=== PATIENT | female | born 1985 | race African-American/Black ===

== ENCOUNTER → 2018-04-26 | Outpatient (CLI) | payer MEDICARE | LOC: MAMMO 13:12 | PROVIDERS: ATTEND Internal Medicine | DX: Z12.31 Encounter for screening mammogram for malignant neoplasm of breast (principal) | CPT/HCPCS: 77067 ==

== ENCOUNTER → 2018-05-21 | Outpatient (CLI) | payer MEDICARE ==
--- NOTE | 2018-05-21 16:10 | Diagnostic Imaging Report ---
EXAMINATION: CHEST 2 VIEWS INDICATION: Shortness of breath. COMPARISON: Asthma, shortness of breath, benzene exposure. FINDINGS: TUBES and LINES: None. LUNGS: Lungs are well inflated. Lungs are clear. There is no evidence of pneumonia or pulmonary edema. PLEURA: No pleural effusion or pneumothorax. HEART AND MEDIASTINUM: The cardiomediastinal silhouette is unremarkable. BONES AND SOFT TISSUES: No acute osseous lesion. Soft tissues are unremarkable. UPPER ABDOMEN: No free air under the diaphragm. IMPRESSION: No acute radiographic abnormality. Signed by: Dr. Ruthie Suresh MD on 05/21/2018 4:07 PM
== END ==
LOC: RAD 15:26
PROVIDERS: ATTEND Internal Medicine
DX: R06.02 Shortness of breath (principal); Z77.021 Contact with and (suspected) exposure to benzene
CPT/HCPCS: 71046

== ENCOUNTER → 2018-08-28 | Outpatient (CLI) | payer MEDICARE, OTHER ==
--- NOTE | 2018-08-28 13:44 | Diagnostic Imaging Report ---
PROCEDURE:SACRUM X-RAY, lumbar spine x-ray INDICATION:Low back pain, denies trauma COMPARISON:None. FINDINGS: Sacrum: No acute displaced fracture or dislocation. Lateral radiograph shows no evidence of cortical disruption or step-off. The sacroiliac joints are intact. The inferior sacrum and coccyx are obscured by rectal gas and stool on the frontal radiograph. The sacral foramina appear intact superiorly. Lumbar spine: there are 5 nonrib-bearing lumbar-type vertebral bodies. No acute, displaced fracture or subluxation. No pars interarticularis defects are identified on the oblique radiographs. Intervertebral disc spaces and facet joints are well maintained. No osseous destructive lesions. CONCLUSION: No acute osseous abnormalities of the sacrum or lumbar spine. Dictated by: Alex Mcnamara M.D. on 08/28/2018 at 13:48 Electronically approved by: Alex Mcnamara M.D. on 08/28/2018 at 13:48
--- NOTE | 2018-08-28 13:45 | Diagnostic Imaging Report ---
PROCEDURE: L-SPINE COMPLETE COMPARISON: None. INDICATIONS: LOW BACK PAIN, DENIES I NJURY FINDINGS: Refer to conclusion CONCLUSION: For full dictated report, refer to SACRUM X-RAY also from 08/28/2018. Dictated by: Alex Mcnamara M.D. on 08/28/2018 at 13:50 Electronically approved by: Alex Mcnamara M.D. on 08/28/2018 at 13:50
== END ==
LOC: RAD 11:42
PROVIDERS: ATTEND Internal Medicine
DX: M47.817 Spondylosis without myelopathy or radiculopathy, lumbosacral region (principal)
CPT/HCPCS: 72110; 72220

== ENCOUNTER → 2021-06-01 | Outpatient (CLI) | payer MEDICARE | LOC: MAMMO 10:25 | PROVIDERS: ATTEND Internal Medicine | DX: Z12.31 Encounter for screening mammogram for malignant neoplasm of breast (principal) | CPT/HCPCS: 77067 ==